=== PATIENT | male | born 1955 | race Caucasian/White ===

== ENCOUNTER 2016-08-23 14:06 | Emergency (ER) | payer BC ==
--- NOTE | ~2016-08-23 | CR63 ---
[facility] A Service of [facility] RADIOLOGY TEXT RESULTS PATIENT: MERARY AUSTIN LOCATION: [facility] : 57 UNIT #: [id number] AGE: [address]: Dickson Alan MD SEX: M ORDER DR: [id number] [facility] [address] [place], [place] [address] [id number] E MR#: [id number] Acc #: [id number] NAME: MERARY AUSTIN : 1955 SEX: M STUDY DATE/TIME: 08/23/2016 13:25 UNIT: [facility] ROOM: STUDY DESCRIPTION: CR Chest 2 View Attending Physician: Dickson Alan M.D. Ordering Physician: Dickson Alan M.D. Primary Care Physician: Sabine Smith M.D. MEDICAL IMAGING REPORT This report is preliminary unless electronic signature is present EXAM Chest 2 views 08/23/2016 HISTORY 61-year-old male with shortness of air for 1 day. COMPARISON Chest 10/07/2015. FINDINGS 2 views of the chest demonstrate clear lungs. No pleural effusion or pneumothorax. Heart size and mediastinum are within normal limits. Pulmonary vasculature is unremarkable. IMPRESSION No acute cardiopulmonary findings. Dictated by... Fernando Salgado M.D. THIS IS AN ELECTRONICALLY VERIFIED REPORT Fernando Salgado M.D. at 08/25/2016 8:33 AM MATT/garcia TD: 08/24/2016 10:13 JOB #: [id number] MEDICAL IMAGING REPORT Page 1 of 1 COPY
[~2016-08-23 14:06] MED LIST: ACTOPLUS MET; ACTOS PO; ACTOS15 MG PO; AUGMENTIN PO; BAYER ASPIRIN325 M1 PO; BYSTOLIC10 MG PO; CADUET 10 MG-21 EACH PO; CADUET 10 MG-41 EACH PO; CADUET 10 MG/201 TAB PO; CARDIZEM CD180 M1 PO; CARDIZEM CD180 M2 PO; CORDARONE200 M1 PO; DUTOPROL 100-11 EACH PO; EFFEXOR XR75 MG PO; FORTAMET1000 MG/B1 PO; HYDROCHLOROTHIA25 MG PO; JANUMET XR 50-1 EAC1 PO; JANUVIA PO; JANUVIA25 MG PO; LISINOPRIL PO; LISINOPRIL-HCTZ1 T14 PO; LOPRESSOR HCT; LOPRESSOR HCT PO; LOPRESSOR HCT1 EACH PO; MEDROL DOSEPAK4 MG PO; METFORMIN HCL1000 M1 PO; METOPROLOL/HCTZ PO; PERCOCET 10/3251 TAB PO; PRINIVIL40 MG; PRINIVIL40 MG PO; TOPROL XL 50 MG50 MG PO; TOPROL XL PO; TYLOX 5-500 MG1 EACH PO; VENLAFAXINE HCL75 M1 PO; XARELTO20 MG PO; ZESTRIL40 MG PO
== END 2016-08-23 14:30 | disposition home or self-care (01) ==
LOC: CED 14:06
DX: I11.0 Hypertensive heart disease with heart failure (principal); I50.9 Heart failure, unspecified; R06.01 Orthopnea; I48.91 Unspecified atrial fibrillation; Z90.49 Acquired absence of other specified parts of digestive tract; Z79.899 Other long term (current) drug therapy
CPT/HCPCS: 71020; 99283

== ENCOUNTER 2016-09-02 06:02 | Emergency (ER) | payer BC ==
--- NOTE | ~2016-09-02 | EKG ---
PATIENT: MERARY AUSTIN UNIT #: [id number] Ventricular Rate: 55 BPM Atrial Rate: 55 BPM P-R Interval: 202 ms QRS Duration: 102 ms Q-T Interval: 464 ms QTC Calculation(Bezet): 443 ms P [place]: 39 degrees Calculated R [place]: 11 degrees Calculated T [place]: 48 degrees Diagnosis Line: Sinus bradycardia Diagnosis Line: Baseline wander Otherwise normal ECG Diagnosis Line: No previous ECGs available Diagnosis Line: Confirmed by MAGALI CASTILLO MD ([id number]) on 09/02/2016 Diagnosis Line: 9:21:14 PM INTERPRETING MD: JONATHAN BROWNE
--- NOTE | ~2016-09-02 | CR72 ---
[facility] A Service of [facility] RADIOLOGY TEXT RESULTS PATIENT: MERARY AUSTIN LOCATION: [facility] : 57 UNIT #: [id number] AGE: [address]: Mabel Rhodes APRN SEX: M ORDER DR: [id number] [facility] [address] [place], [place] [address] [id number] E MR#: [id number] Acc #: [id number] NAME: MERARY AUSTIN. : 1955 SEX: M STUDY DATE/TIME: 09/02/2016 6:37 UNIT: [facility] ROOM: STUDY DESCRIPTION: CR Chest Single View Portable Attending Physician: Mabel Rhodes A.P.R.N. Ordering Physician: Mabel Rhodes A.P.R.N. Primary Care Physician: Sabine Smith M.D. MEDICAL IMAGING REPORT This report is preliminary unless electronic signature is present EXAM Portable chest HISTORY Shortness of air onset this morning and hypertension. HISTORY CHF. COMPARISON 08/23/2016 FINDINGS 2 portable view of the chest were submitted. The initial radiograph but the right chest off but the study was repeated. Small amount of subsegmental atelectasis left midlung zone. Cardiomegaly with mild pulmonary vascular congestion. No dense airspace disease or consolidation. No effusions. No invasive tubes or lines. No pneumothorax. Dictated by... Lara Romo M.D. THIS IS AN ELECTRONICALLY VERIFIED REPORT Lara Romo M.D. at 09/02/2016 12:26 PM Sulaiman TD: 09/02/2016 08:50 JOB #: [id number] MEDICAL IMAGING REPORT Page 1 of 1 COPY
[2016-09-02 06:36] LABS: BASOPHIL# 0.1 X10e3 (0-0.3); EOSINOPHIL# 0.3 X10e3 (0-0.7); EOSINOPHIL% 2.8 % (0.0-7.0); HEMATOCRIT 47.8 % (38.0-50.0); HEMOGLOBIN 15.5 gm/dL (13.0-16.0); LYMPHOCYTE# 1.1 X10e3 (1.0-3.5); LYMPHOCYTE% 11.3 % (17.0-45.0); MEAN CELL VOLUME 90.9 FL (83-96); MEAN CORPUSCULAR HEMOGLOBIN 29.4 PG (28-34); MEAN CORPUSCULAR HGB CONC 32.4 g/dL (30-36); MONOCYTE# 0.7 X10e3 (0-1.0); MONOCYTE% 7.5 % (3.0-12.0); NEUTROPHIL# 7.7 X10e3 (1.5-7.1); NEUTROPHIL% 77.4 % (40-75); PLATELET COUNT 243 X10e3 (140-420); RED BLOOD COUNT 5.26 X10e (3.90-5.60); RED CELL DISTRIBUTION WIDTH 15.3 % (11.0-15.5); WHITE BLOOD COUNT 9.9 X10e3 (4.0-10.5)
[2016-09-02 06:37] LABS: DIFF IND NO
[2016-09-02 06:39] LABS: POC - CKMB 2.9 ng/mL (0.0-7.9); POC - TROPONIN <0.05 ng/mL (<=0.05)
[2016-09-02 06:51] LABS: PARTIAL THROMBOPLASTIN TIME 27.9 SECONDS (23.5-31.3); PROTHROMBIN TIME (PATIENT) 10.8 SECONDS (9.6-11.5)
[2016-09-02 06:59] LABS: AMYLASE 11 U/L (0-46); LIPASE 17 U/L (22-51)
[2016-09-02 07:13] LABS: ALBUMIN SERUM 4.1 g/dL (3.5-5.0); BILIRUBIN, DIRECT 0.1 mg/dL (0.0-0.2); BILIRUBIN,INDIRECT 0.7 mg/dL (0.0-0.9); BILIRUBIN,TOTAL 0.8 mg/dL (0.2-2.0); CALCIUM SERUM 8.9 mg/dL (8.4-10.2); CREATININE SERUM 0.9 mg/dL (0.6-1.4); GLOM FILT RATE Estimated 92.5 mL/min (>60); POTASSIUM 3.6 mmol/L (3.5-5.1); PROTEIN TOTAL SERUM 7.5 g/dL (6.0-8.3)
== END 2016-09-02 08:20 | disposition home or self-care (01) ==
LOC: CED 06:02
PROVIDERS: Nurse Practitioner
DX: I11.0 Hypertensive heart disease with heart failure (principal); I50.9 Heart failure, unspecified; E11.9 Type 2 diabetes mellitus without complications; Z90.49 Acquired absence of other specified parts of digestive tract; Z90.89 Acquired absence of other organs
CPT/HCPCS: 36415; 71010; 80048; 80076; 82150; 82553; 83690; 84484; 85025; 85610; 85730; 93005; 99283